=== PATIENT | female | born 1955 | race Caucasian/White ===

== ENCOUNTER → 2017-05-09 | Outpatient (CLI) | payer OTHER ==
[~2017-05-09] MED LIST: FOLIC ACID1 MG PO; KEFLEX PO; LEVAQUIN750 MG PO; LIPITOR PO; METHOTREXATE PO; POLYETHYLENE GLYCOL; POLYVINYL ALCOHOL; PREDNISONE PO; PREDNISONE5 MG PO; PREMARIN PO; SYNTHROID PO; VICODIN 5/500 T1 TAB PO
--- NOTE | ~2017-05-09 | CT57 ---
[facility] A Service of [facility] RADIOLOGY TEXT RESULTS PATIENT: KIP SAMPSON LOCATION: [facility] : 51 UNIT #: [id number] AGE: [address]: Peña Alcantar MD SEX: F ORDER DR: [id number] [facility] [address] [place], [place] [address] [id number] O MR#: [id number] Acc #: [id number] NAME: KIP SAMPSON : 1955 SEX: F STUDY DATE/TIME: 05/09/2017 9:54 UNIT: [facility] ROOM: STUDY DESCRIPTION: CT Chest Wo Cont Attending Physician: Peña Alcantar M.D. Referring Physician: Peña Alcantar M.D. Ordering Physician: Peña Alcantar M.D. Primary Care Physician: Jennifer Sherman A.P.R.N. MEDICAL IMAGING REPORT This report is preliminary unless electronic signature is present EXAM CT chest without contrast, 05/09/2017. HISTORY 61-year-old female for followup of pulmonary nodule. No current complaints. COMPARISON CT chest 01/28/2012, 06/27/2011, high-resolution CT chest 09/12/2016. PROCEDURE 2-mm noncontrasted axial images through the chest. Sagittal and coronal reformatted images were obtained. FINDINGS 2-mm calcified granuloma in the left lower chest, intimately associated with the major fissure (series 4 image 82) corresponds to the micronodule described on the recent CT chest of 09/12/2016, and corresponds to a benign calcified granuloma described on the CT chest of 01/28/2012. It is in keeping with a benign finding, and no further surveillance is warranted. There are no new or suspicious pulmonary nodules. No acute airspace disease. No pathologic adenopathy. No pericardial effusion. No pleural effusion. No pneumothorax. Normal heart size. Included portions of the upper abdominal organs are within normal limits. Osseous structures are within normal limits. IMPRESSION 1. Approximately 2-mm calcified granuloma in the left lower chest [facility] A Service of [facility] RADIOLOGY TEXT RESULTS PATIENT: KIP SAMPSON LOCATION: [facility] : 51 UNIT #: [id number] AGE: [address]: Peña Alcantar MD SEX: F ORDER DR: associated with the major fissure is a stable finding since 01/28/2012. No further surveillance is warranted. 2. No new or suspicious pulmonary nodules. 3. No acute chest findings. Dictated by... Katherine Anthony M.D. THIS IS AN ELECTRONICALLY VERIFIED REPORT Katherine Anthony M.D. at 05/12/2017 1:22 PM MICHAELA/anthony TD: 05/09/2017 17:18 JOB #: [id number] MEDICAL IMAGING REPORT Page 1 of 1 COPY
== END | disposition home or self-care (01) ==
LOC: CCAT 09:14
DX: R91.1 Solitary pulmonary nodule (principal); J98.4 Other disorders of lung
CPT/HCPCS: 71250